=== PATIENT | male | born 1980 | race Hispanic/Latino ===

== ENCOUNTER 2017-03-08 21:04 | Emergency (ER) | payer SELFPAY ==
[~2017-03-08] VITALS: Ht 172.7 cm; Wt 94.6 kg
[~2017-03-08 21:04] MED LIST: CEPHALEXIN500 MG PO; CIPRO500 MG OR; LORTAB 5 OR; NAPROSYN500 MG PO
[2017-03-08] MEDS ORDERED: TYLENOL325 M2 (21:15)
[2017-03-08 23:01] LABS: HEMATOCRIT 40.3 % (39.0-50.0); HEMOGLOBIN 13.6 g/dl (14.0-18.0); IMMATURE GRANULOCYTES 0.4 % (0.0-1.0); MEAN CORPUSCULAR HGB 29.4 pG CALC (26.0-32.0); MEAN CORPUSCULAR HGB CONC 33.7 g/L CALC (32.0-36.0); NEUT# 4.9 thou/uL (1.82-7.42); RED BLOOD COUNT 4.63 mill/uL (4.70-6.10); RED CELL DISTRI WIDTH 13.2 % (11.5-15.5)
[2017-03-08 23:21] LABS: ALBUMIN 4.7 g/dL (3.2-5.0); ALKALINE PHOSPHATASE 86 u/l (38-126); ANION GAP 15 (6-22 (CALC)); BILIRUBIN, TOTAL 0.5 mg/dL (0.0-1.4); BUN 22 mg/dL (9-20); BUN/CREATININE RATIO 16 (12-20 (CALC)); CALCIUM 9.4 mg/dL (8.4-10.2); CARBON DIOXIDE 27 mmol/l (22-30); CHLORIDE 104 mmol/l (95-108); CREATININE 1.4 mg/dL (0.7-1.3); GFR 57 ML/MIN (>=60 (CALC)); GFR FOR AFR.AMER. > 60 ML/MIN (>=60 (CALC)); GLUCOSE 91 mg/dL (75-110); POTASSIUM 3.8 mmol/l (3.5-5.1); SGOT/AST 39 u/l (17-59); SGPT/ALT 89 u/l (21-72); SODIUM 141 mmol/l (137-146)
[2017-03-09] MEDS ORDERED: ULTRAM50 M1 PO (00:10)
[2017-03-09] MEDS ORDERED: AMOXICILLIN500 MG PO (00:10)
[2017-03-09] MEDS ORDERED: NAPROSYN500 MG PO (00:10)
[2017-03-09 00:30] VITALS: BP 147/88
== END 2017-03-09 00:35 | disposition home or self-care (01) | DRG 605 ==
LOC: ED 21:04
PROVIDERS: Emergency Medicine
DX: S80.02XA Contusion of left knee, initial encounter (principal); L03.115 Cellulitis of right lower limb; M25.462 Effusion, left knee; W19.XXXA Unspecified fall, initial encounter; Y93.H3 Activity, building and construction; Y92.89 Other specified places as the place of occurrence of the external cause; M25.562 Pain in left knee; M79.671 Pain in right foot

== ENCOUNTER 2020-06-18 16:52 | Emergency (ER) | payer SELFPAY ==
[~2020-06-18] VITALS: Ht 172.7 cm; Wt 97.0 kg
[~2020-06-18 16:52] MED LIST changes: +AMOXICILLIN500 MG PO; +TYLENOL325 M2; +ULTRAM50 M1 PO
[2020-06-18] MEDS ORDERED: NAPROXEN500 MG PO (17:50)
[2020-06-18 17:55] VITALS: BP 135/77
== END 2020-06-18 18:12 | disposition home or self-care (01) | DRG 566 ==
LOC: ED 16:52
DX: M25.462 Effusion, left knee (principal); S83.92XA Sprain of unspecified site of left knee, initial encounter; X58.XXXA Exposure to other specified factors, initial encounter

== ENCOUNTER 2021-07-21 09:57 | Emergency (ER) | payer SELFPAY ==
[~2021-07-21] VITALS: Ht 172.7 cm; Wt 98.0 kg
[~2021-07-21 09:57] MED LIST changes: +NAPROXEN500 MG PO
[2021-07-21 10:07] VITALS: BP 147/96
[2021-07-21 10:47] LABS: HEMOGLOBIN 14.3 g/dl (14.0-18.0); IMMATURE GRANULOCYTES 0.5 % (0.0-5.0); MEAN CELL VOLUME 88.2 fL CALC (80.0-100.0); MEAN CORPUSCULAR HGB 28.7 pG CALC (26.0-32.0); MEAN CORPUSCULAR HGB CONC 32.5 g/dL CAL (32.0-36.0); NEUT# 3.59 thou/uL (1.82-7.42); RED BLOOD COUNT 4.99 mill/uL (4.70-6.10); RED CELL DISTRI WIDTH 13.4 % (11.5-15.5)
[2021-07-21 10:54] LABS: ALBUMIN 4.1 g/dL (3.2-5.0); ALKALINE PHOSPHATASE 122 u/l (38-126); ANION GAP 14 (6-22 (CALC)); BILIRUBIN, TOTAL 0.4 mg/dL (0.0-1.4); BUN 11 mg/dL (9-20); BUN/CREATININE RATIO 16 (12-20 (CALC)); CARBON DIOXIDE 22 mmol/l (22-30); CHLORIDE 104 mmol/l (95-108); CREATININE 0.7 mg/dL (0.7-1.3); GFR > 60 ML/MIN (>=60 (CALC)); GFR FOR AFR.AMER. > 60 ML/MIN (>=60 (CALC)); LIPASE 49 u/l (23-300); POTASSIUM 3.9 mmol/l (3.5-5.1); SGOT/AST 33 u/l (17-59); SODIUM 136 mmol/l (137-146); TOTAL PROTEIN 6.6 g/dL (6.3-8.2)
[2021-07-21] MEDS ORDERED: METRONIDAZOLE500 MG PO (12:48)
[2021-07-21] MEDS ORDERED: ZOFRAN4 MG/TAB PO (12:48)
[2021-07-21] MEDS ORDERED: CIPROFLOXACN500 MG PO (12:48)
[2021-07-21] MEDS ORDERED: HYOSCYAMINE0.125 M3 PO (12:48)
[2021-07-21 13:19] VITALS: BP 102/83
== END 2021-07-21 13:09 | disposition home or self-care (01) | DRG 392 ==
LOC: ED 09:57
PROVIDERS: Family Medicine
DX: K52.9 Noninfective gastroenteritis and colitis, unspecified (principal)
CPT/HCPCS: Q9967

== ENCOUNTER 2022-02-22 18:40 | Emergency (ER) | payer SELFPAY ==
[~2022-02-22] VITALS: Ht 172.7 cm; Wt 100.0 kg
[2022-02-22] VITALS (7 sets, daily range): BP systolic 168–186; BP diastolic 99–115
[~2022-02-22 18:40] MED LIST changes: +CIPROFLOXACN500 MG PO; +HYOSCYAMINE0.125 M3 PO; +METRONIDAZOLE500 MG PO; +ZOFRAN4 MG/TAB PO
[2022-02-22] MEDS ORDERED: ULTRAM50 MG PO (21:37)
[2022-02-22] MEDS ORDERED: CYCLOBENZAPRINE10 MG PO (21:37)
== END 2022-02-22 22:19 | disposition home or self-care (01) | DRG 552 ==
LOC: ED 18:40
DX: M47.26 Other spondylosis with radiculopathy, lumbar region (principal)

== ENCOUNTER 2023-01-14 13:22 | Emergency (ER) | payer SELFPAY ==
[~2023-01-14] VITALS: Ht 172.7 cm; Wt 95.0 kg
[2023-01-14] VITALS (10 sets, daily range): BP systolic 144–176; BP diastolic 95–119
[~2023-01-14 13:22] MED LIST changes: +CYCLOBENZAPRINE10 MG PO; +ULTRAM50 MG PO
[2023-01-14 13:48] LABS: BASO% 0.6 % (0-3); EOS% 2.1 % (0-8); HEMATOCRIT 43.5 % (39.0-50.0); HEMOGLOBIN 14.6 g/dl (14.0-18.0); IMMATURE GRANULOCYTES 0.5 % (0.0-5.0); LYMPH% 26.5 % (15-41); MEAN CELL VOLUME 85.5 fL CALC (80.0-100.0); MEAN CORPUSCULAR HGB 28.7 pG CALC (26.0-32.0); MEAN CORPUSCULAR HGB CONC 33.6 g/dL CAL (32.0-36.0); MONO% 7.2 % (2-13); NEUT# 5.48 thou/uL (1.82-7.42); NEUT% 63.1 % (42-76); RED BLOOD COUNT 5.09 mill/uL (4.70-6.10); RED CELL DISTRI WIDTH 12.7 % (11.5-15.5)
[2023-01-14 14:16] LABS: ALBUMIN 4.5 g/dL (3.2-5.0); ALKALINE PHOSPHATASE 91 u/l (38-126); ANION GAP 14 (6-22 (CALC)); BILIRUBIN, TOTAL 0.5 mg/dL (0.2-1.3); BUN 17 mg/dL (9-20); BUN/CREATININE RATIO 19 (12-20 (CALC)); CARBON DIOXIDE 23 mmol/l (22-30); CHLORIDE 104 mmol/l (95-108); CREATININE 0.9 mg/dL (0.7-1.3); GFR FOR AFR.AMER. > 60 ML/MIN (>=60 (CALC)); GFR OTHER RACES > 60 ML/MIN (>=60 (CALC)); LIPASE 61 u/l (23-300); POTASSIUM 3.5 mmol/l (3.5-5.1); SODIUM 137 mmol/l (137-146); TOTAL PROTEIN 7.4 g/dL (6.3-8.2)
[2023-01-14 14:17] LABS: SGOT/AST 72 u/l (17-59)
== END 2023-01-14 16:05 | disposition short-term general hospital (02) | DRG 999 ==
LOC: ED 13:22
PROVIDERS: Family Medicine
DX: S32.050A Wedge compression fracture of fifth lumbar vertebra, initial encounter for closed fracture (principal); S06.9X1A Unspecified intracranial injury with loss of consciousness of 30 minutes or less, initial encounter; S30.811A Abrasion of abdominal wall, initial encounter; S30.1XXA Contusion of abdominal wall, initial encounter; E66.9 Obesity, unspecified; W13.2XXA Fall from, out of or through roof, initial encounter; Y92.008 Other place in unspecified non-institutional (private) residence as the place of occurrence of the external cause
CPT/HCPCS: Q9967

== ENCOUNTER 2023-11-11 16:58 | Emergency (ER) | payer SELFPAY ==
[2023-11-11] VITALS (11 sets, daily range): BP systolic 153–189; BP diastolic 98–123
[~2023-11-11] VITALS: Ht 172.7 cm; Wt 104.3 kg
[~2023-11-11 16:58] MED LIST changes: +LORTAB 7.57.5 MG PO; +METHOCARBAMOL500 MG PO; +PREDNISONE10 MG PO
[2023-11-11] MEDS ORDERED: KETOROLAC TROMETHAMINE 30 MG/ML SDV IV ONE (17:25)
[2023-11-11 17:44] LABS: BASO% 0.4 % (0-3); EOS% 2.9 % (0-8); HEMATOCRIT 42.8 % (39.0-50.0); HEMOGLOBIN 14.9 g/dl (14.0-18.0); IMMATURE GRANULOCYTES 0.3 % (0.0-5.0); LYMPH% 31.8 % (15-41); MEAN CELL VOLUME 81.5 fL CALC (80.0-100.0); MEAN CORPUSCULAR HGB 28.4 pG CALC (26.0-32.0); MEAN CORPUSCULAR HGB CONC 34.8 g/dL CAL (32.0-36.0); MONO% 5.3 % (2-13); NEUT# 4.22 thou/uL (1.82-7.42); NEUT% 59.3 % (42-76); RED BLOOD COUNT 5.25 mill/uL (4.70-6.10); RED CELL DISTRI WIDTH 12.3 % (11.5-15.5)
[2023-11-11 17:58] LABS: ALBUMIN 4.5 g/dL (3.2-5.0); BILIRUBIN, TOTAL 0.6 mg/dL (0.2-1.3); CREATININE 0.7 mg/dL (0.7-1.3); TOTAL PROTEIN 7.2 g/dL (6.3-8.2)
[2023-11-11] MEDS ORDERED: INSULIN REGULAR (HUMAN) 100 UNIT/ML INJ IV ONE (18:05)
[2023-11-11] MEDS ORDERED: SODIUM CHLORIDE 0.9% 1,000 ML IV ONE (18:05)
[2023-11-11 18:20] LABS: URINE BILIRUBIN - DIPSTICK Negative (NEGATIVE); URINE BLOOD DIPSTICK Negative (NEGATIVE); URINE COLOR Yellow; URINE GLUCOSE - DIPSTICK >=1000 mg/dL (NEGATIVE); URINE KETONE Negative (NEGATIVE); URINE LEUK ESTERASE Negative (NEGATIVE); URINE NITRITE - DIPSTICK Negative (Negative); URINE PROTEIN - DIPSTICK Negative (NEG-TRACE); URINE SPECIFIC GRAVITY 1.015; URINE UROBILINOGEN - DIPSTICK 0.2 E.U./dL (0.2)
[2023-11-11] MEDS ORDERED: ONDANSETRON HCl 4 MG/2 ML SDV IV ONE (18:35)
[2023-11-11] MEDS ORDERED: MORPHINE SULFATE 4 MG/ML VIAL IV ONE (18:35)
[2023-11-11] MEDS ORDERED: METFORMIN HCL500 M1 PO (21:24)
[2023-11-11] MEDS ORDERED: VOLTAREN - GENE75 MG PO (21:24)
[2023-11-11] MEDS ORDERED: AMARYL1 MG PO (21:24)
[2023-11-11] MEDS ORDERED: ACETAMINOPHEN 500 MG TAB PO ONE (21:30)
[2023-11-11] MEDS ORDERED: GLIMEPIRIDE 1 MG TAB PO ONE (21:30)
[2023-11-11] MEDS ORDERED: DICLOFENAC SODIUM 75 MG/TAB PO ONE (21:30)
== END 2023-11-11 22:35 | disposition home or self-care (01) | DRG 605 ==
LOC: ED 16:58
PROVIDERS: Family Medicine
DX: S30.1XXA Contusion of abdominal wall, initial encounter (principal); I10 Essential (primary) hypertension; E11.65 Type 2 diabetes mellitus with hyperglycemia; W01.0XXA Fall on same level from slipping, tripping and stumbling without subsequent striking against object, initial encounter; Y92.009 Unspecified place in unspecified non-institutional (private) residence as the place of occurrence of the external cause
CPT/HCPCS: Q9967

== ENCOUNTER 2024-03-30 12:36 | Emergency (ER) | payer SELFPAY ==
[2024-03-30] VITALS (19 sets, daily range): BP systolic 149–175; BP diastolic 91–140
[~2024-03-30] VITALS: Ht 172.7 cm; Wt 99.7 kg
[~2024-03-30 12:36] MED LIST changes: +ACTOS15 MG PO; +AMARYL1 MG PO; +COZAAR25 MG PO; +GLIPIZIDE5 M2 PO; +LIDOCAINE45 TOP; +LORTAB 5/3255 MG PO; +METFORMIN HCL500 M1 PO; +VOLTAREN - GENE75 MG PO
[2024-03-30] MEDS ORDERED: KETOROLAC TROMETHAMINE 30 MG/ML SDV IV STA (13:37)
[2024-03-30] MEDS ORDERED: ONDANSETRON HCl 4 MG/2 ML SDV IV STA (13:37)
[2024-03-30] MEDS ORDERED: MORPHINE SULFATE 4 MG/ML VIAL IV STA (13:37)
[2024-03-30] MEDS ORDERED: SODIUM CHLORIDE 0.9% 1,000 ML IV STA (13:37)
[2024-03-30 14:21] LABS: BASO% 0.5 % (0-3); EOS% 2.3 % (0-8); HEMATOCRIT 45.3 % (39.0-50.0); HEMOGLOBIN 14.9 g/dl (14.0-18.0); IMMATURE GRANULOCYTES 0.3 % (0.0-5.0); LYMPH% 29.4 % (15-41); MEAN CELL VOLUME 85.8 fL CALC (80.0-100.0); MEAN CORPUSCULAR HGB 28.2 pG CALC (26.0-32.0); MEAN CORPUSCULAR HGB CONC 32.9 g/dL CAL (32.0-36.0); MONO% 6.3 % (2-13); NEUT# 4.91 thou/uL (1.82-7.42); NEUT% 61.2 % (42-76); RED BLOOD COUNT 5.28 mill/uL (4.70-6.10); RED CELL DISTRI WIDTH 12.5 % (11.5-15.5)
[2024-03-30 14:33] LABS: ALBUMIN 4.6 g/dL (3.2-5.0); BILIRUBIN, TOTAL 0.6 mg/dL (0.2-1.3); CREATININE 0.8 mg/dL (0.7-1.3); POTASSIUM 4.5 mmol/l (3.5-5.1); TOTAL PROTEIN 7.2 g/dL (6.3-8.2)
[2024-03-30 15:41] LABS: URINE BILIRUBIN - DIPSTICK Negative (NEGATIVE); URINE BLOOD DIPSTICK Negative (NEGATIVE); URINE GLUCOSE - DIPSTICK 100 mg/dL (NEGATIVE); URINE KETONE Negative (NEGATIVE); URINE LEUK ESTERASE Negative (NEGATIVE); URINE NITRITE - DIPSTICK Negative (Negative); URINE PROTEIN - DIPSTICK Negative (NEG-TRACE); URINE UROBILINOGEN - DIPSTICK 0.2 E.U./dL (0.2)
[2024-03-30 15:42] LABS: URINE COLOR Yellow
[2024-03-30] MEDS ORDERED: ORPHENADRINE CITRATE 30 MG/ML AMP IV ONE (15:55)
[2024-03-30] MEDS ORDERED: LORTAB 5/3255 MG PO (16:07)
== END 2024-03-30 17:29 | disposition home or self-care (01) | DRG 552 ==
LOC: ED 12:36
PROVIDERS: Nurse Practitioner
DX: M54.9 Dorsalgia, unspecified (principal); R10.31 Right lower quadrant pain; I10 Essential (primary) hypertension; E11.9 Type 2 diabetes mellitus without complications; Z79.84 Long term (current) use of oral hypoglycemic drugs
CPT/HCPCS: J2360; J2405